=== PATIENT | male | born 1945 | race Two or more races ===

== ENCOUNTER → 2025-03-05 | Outpatient (CLI) | payer MEDICAID, SELFPAY ==
--- NOTE | 2025-03-05 13:00 | XR_ITS ---
Examination: CT chest, without intravenous contrast. Sagittal and coronal 2-D reconstructions. Exam date and time: March 05, 2025 1327 hours INDICATIONS: Smoking history 50 years CTDI:vol (mGy) 8.12 DLP: (mGycm) 290 Technique: Multiple 3.0 mm axial sections of the chest to been obtained. Bone and lung density settings are obtained. Sagittal and coronal 2-D reconstructions have been obtained. Low dose protocols were performed. One or more of the following dose reduction techniques were used; automated exposure control, adjustment of the mA and/or KV according to patient size, use of iterative reconstruction technique. Findings: No thoracic aortic aneurysmal dilatation Pulmonary artery segments are not enlarged Thick-walled cavitary lesion in the posterior right upper lobe, 4.3 cm 6 mm pulmonary nodule right upper lobe 4 mm pulmonary nodule left upper lobe 10 mm pulmonary nodule posterior left upper lobe 8mm pulmonary nodule anterior right upper lobe 2 mm pulmonary nodule anterior right upper lobe No pulmonary edema No pleural disease No visualized liver or splenic lesion Tiny gallstones No pancreatic mass Moderate osteopenia IMPRESSION: 4.3 cm spiculated pulmonary cavitary mass in the right upper lobe Multiple noncalcified bilateral pulmonary nodules, highest on the differential list is lung carcinoma with metastatic pulmonary nodules The cavitary mass is amenable to CT-guided percutaneous biopsy for diagnosis
== END | disposition home or self-care (01) ==
PROVIDERS: Referring Provider Physician Assistant; Visit Provider Physician Assistant
DX: Z12.2 Encounter for screening for malignant neoplasm of respiratory organs (principal); R91.8 Other nonspecific abnormal finding of lung field
CPT/HCPCS: 71271